=== PATIENT | male | born 1965 | race Caucasian/White ===

== ENCOUNTER → 2016-07-05 | Outpatient (CLI) | payer BC ==
[2016-07-05 13:24] LABS: BASO % 0.7 %; BASO ABS # 0.03 K/uL (0-0.2); COMPLETE YES; EOS % 1.7 %; HEMATOCRIT 39.9 % (42-52); LYMPH % 34.1 %; LYMPH ABS # 1.42 K/uL (1.2-3.4); MEAN CELL VOLUME 84.9 fL (80-100); MEAN CORPUSCULAR HEMOGLOBIN 30.6 pg (25-34); MEAN CORPUSCULAR HGB CONC 36.1 g/dl (32-36); MONO % 8.2 %; NEUT % 55.3 %; PLATELET COUNT 211 K/uL (130-400); WHITE BLOOD COUNT 4.17 K/uL (4.8-10.8)
== END | disposition home or self-care (01) ==
LOC: C.LABBC 08:34
PROVIDERS: ATTEND Internal Medicine
DX: D64.9 Anemia, unspecified (principal)

== ENCOUNTER 2017-07-10 14:18 | Emergency (ER) | payer BC, OTHER ==
[~2017-07-10] VITALS: Ht 185.4 cm; Wt 109.0 kg
[2017-07-10 14:26] VITALS: BP 154/99; PULSE 100; TEMP 36.7; O2SAT 97; Ht 185.4 cm; Wt 109.0 kg
--- NOTE | 2017-07-10 15:00 | EMERGENCY ROOM VISIT NOTE ---
History First contact with patient: 14:40 Chief Complaint: HIP PAIN Stated Complaint: SCIATICA, NUMBESS IN RIGHT FOOT, MUSCLE WEAKNESS History of Present Illness The patient is a 51 year old male who presents to the Emergency Room with complaints of low back pain into his right buttock and down his right leg that has been going on for approximately 1 week. The patient remembers feeling a twinge 1 week ago when he turned to for a couple coffee. He then got in a car and drove for 3 hours, which made the pain a lot worse. He has seen his primary care physician. He was put on prednisone and Flexeril that seems to be helping. The patient is concerned because now his right calf feels weak. He denies any numbness or tingling into the groin. No urinary or bowel incontinence. The patient is scheduled to see a neurologist on Thursday. Review of Systems 10 system review performed and negative unless noted in HPI or below Past Medical/Surgical History Otherwise healthy Social History Smoking Status: Never Smoker Occupation Status: employed Current/Historical Medications Scheduled Prednisone (Prednisone), 20 MG PO TAPER UD Scheduled PRN Cetirizine Hcl (Zyrtec Allergy), 10 MG PO DAILY PRN for Seasonal Allergies Cyclobenzaprine Hcl (Flexeril), 5 MG PO HS PRN for Muscle Spasms Ibuprofen Tab (Advil), 600 MG PO Q6H PRN for Pain Physical Exam Vital Signs Date Time Temp Pulse Resp B/P (MAP) Pulse Ox O2 Delivery O2 Flow Rate FiO2 07/10/17 14:26 36.7 100 16 154/99 97 Room Air Physical Exam VITALS: Vitals are noted on the nurse's note and reviewed by myself. Vital signs stable. GENERAL: 51-year-old male, in moderate discomfort, SKIN: The skin was without rashes, erythema, edema, or bruising. There is no tenting of the skin. Capillary reflex less than 2 seconds. HEAD: Normocephalic atraumatic. NECK: Supple without nuchal rigidity. MUSCULOSKELETAL: No tenderness to palpation of the lumbar spinous processes. Mild tenderness over the right SI joint. Right paraspinous muscles are tense. Dorsiflexion and plantar flexion is equal bilaterally. Sensation in the lower extremities is intact. Pain with flexion of the right hip. Strength 5/5 throughout. NEURO: Patient was alert and oriented to person place and time. Normal sensation to touch. No focal neurological deficits. Medical Decision & Procedures ER Provider Diagnostic Interpretation: MRI lumbar spine IMPRESSION: 1. A 16 x 7 x 7 mm right paracentral disc extrusion at L5-S1 which compresses the transiting right S1 nerve root. 2. Small right foraminal/extraforaminal focal disc protrusion at L2-L3 which compresses the exiting right L2 nerve root. 3. Additional degenerative changes as described above. Electronically signed by: Duke Saez M.D. 07/10/2017 4:58 PM Dictated Date/Time: 07/10/2017 4:52 PM The status of this report is Signed. Draft = Not yet reviewed or approved by Radiologist. Signed = Reviewed and approved by Radiologist. <AttendingPhy></AttendingPhy> <FamilyPhy>Davin Simons M.D.</FamilyPhy> < PrimaryPhy>Davin Simons M.D.</PrimaryPhy> <UnitNumber>[id number]</UnitNumber> <VisitNumber>[id number]</VisitNumber> <PatientName>DIGNA WYLIE</PatientName > <DateOfBirth>1965</DateOfBirth> <Location>[facility]</Location> <ServiceDate> 07/10/17</ServiceDate> <MNE>ESINDI</MNE> <OrderingPhy>Josephine Casper PA-C</ OrderingPhy> <OrderingPhyMNE>[facility] ED Course The patient was seen and examined He declined pain medication Imaging was performed Upon reevaluation, the patient was standing in the room. We discussed his results at length. He voiced understanding, was comfortable being discharged home. He again declined pain medication. Discharge instructions were reviewed, and he was discharged in good condition Medical Decision Differential diagnosis: Spine fracture, ligamentous injury, subluxation, spondylolisthesis, spondylosis, herniated disc, contusion, muscle spasm This patient is a 51-year-old male that presents emergency department with low back pain, numbness and weakness into the right leg. On exam, I cannot appreciate any weakness. He is neurovascular intact. An MRI was performed consistent with a disc protrusion at L5-S1. This likely explains his symptoms. The patient declined pain medication. He is already taking a muscle relaxant and steroids. He will follow-up with his neurologist as scheduled on Thursday. He agrees to return to the emergency department with worsening symptoms. This chart was completed in part utilizing [employer] Speech Voice Recognition software. Attempts were made to minimize the grammatical errors, random word insertions, pronoun errors and incomplete sentences. Any formal questions or concerns about the content, text or information contained within the body of this dictation should be directly addressed to the provider for clarification. Blood Pressure Screening Patient's blood pressure: Elevated blood pressure Blood pressure disposition: Elevated BP felt to be situational Impression Primary Impression: Sciatica of right side Departure Information Dispostion Home / Self-Care Condition GOOD Referrals Davin Simons M.D. (PCP) Patient Instructions [facility] Additional Instructions You had been evaluated in the emergency department for back pain. This is likely due to a disc protrusion at L5-S1 Please continue medications as prescribed in addition to prednisone and steroids, you may take Tylenol and ibuprofen as needed for pain Ibuprofen 600 mg and/or Tylenol 1000 mg every 8 hours. You may also alternate these medications for more effective pain relief: Ibuprofen --4 HRS--> Tylenol --4 HRS--> ibuprofen --4 HRS--> Tylenol .... Please follow-up with the neurologist as scheduled on Thursday. Do not hesitate to return to the emergency department with a new, worsening or concerning symptoms; especially, numbness or tingling in the groin, uncontrolled pain, or urinary or bowel incontinence It was a pleasure participating in your care Work Instructions Return To Work: 2 days
[2017-07-10] MEDS ORDERED: CYCL5TAB PO (15:20)
[2017-07-10] MEDS ORDERED: PRED20TA PO (15:20)
[2017-07-10] MEDS ORDERED: IBUP-103 PO (15:20)
[2017-07-10] MEDS ORDERED: CETI10CA PO (15:20)
--- NOTE | 2017-07-10 16:59 | DIAGNOSTIC IMAGING REPORT ---
LUMBAR SPINE MRI HISTORY: Right leg numbness and weakness TECHNIQUE: Multiplanar multisequence MRI of the lumbar spine was performed without the use of contrast. COMPARISON: None. FINDINGS: For the purpose of the report the L5-S1 disc space will be located on axial image 27 of 30. Mild dextroscoliosis. Alignment is intact. No fractures within the lumbar spine. The contrast terminates at the L1 level. Moderate facet osteoarthritis at L4-L5. Paraspinal soft tissues are unremarkable. Mild disc space narrowing at L5-S1. Disc desiccation throughout the majority of the lumbar spine. L1-L2: Minimal central canal narrowing primarily due to the ligamentum and facet hypertrophy. There is also mild bilateral neural foraminal narrowing. L2-L3: Small broad-based posterior disc bulge with a small right foraminal/extraforaminal focal disc protrusion. This abuts and compresses the exiting right L2 nerve root at this level. There is also mild central canal narrowing due to the ligamentum and facet hypertrophy. L3-L4: Small broad-based posterior disc bulge with a tiny focal central disc protrusion. There is ligamentum and facet hypertrophy resulting in mild central canal and [id number] bilateral neural foraminal narrowing. L4-L5: Tiny broad-based posterior disc bulge with a focal central annular tear. Mild central canal narrowing due to the ligamentum and facet hypertrophy. There is also moderate bilateral neural foraminal narrowing. L5-S1: There is a 16 x 7 x 7 mm right paracentral disc extrusion demonstrating inferior subligamentous migration. This abuts and compresses the transiting right S1 nerve root. No significant central canal narrowing. Mild right-sided neural foraminal narrowing. IMPRESSION: 1. A 16 x 7 x 7 mm right paracentral disc extrusion at L5-S1 which compresses the transiting right S1 nerve root. 2. Small right foraminal/extraforaminal focal disc protrusion at L2-L3 which compresses the exiting right L2 nerve root. 3. Additional degenerative changes as described above. Electronically signed by: Duke Saez M.D. 07/10/2017 4:58 PM Dictated Date/Time: 07/10/2017 4:52 PM
== END 2017-07-10 17:43 | disposition home or self-care (01) ==
LOC: C.EDB 14:20 → C.EDD 17:43
DX: M54.31 Sciatica, right side (principal)

== ENCOUNTER → 2017-07-23 | Day surgery (SDC) | payer OTHER ==
[2017-07-17 14:37] VITALS: Ht 185.4 cm; Wt 104.5 kg
[~2017-07-23] VITALS: Ht 185.4 cm; Wt 104.5 kg
[~2017-07-23] MED LIST: CETI10CA PO; DEXAMETHASONE SOD INJ 4 MG/ML VIAL ONE; FLUT50SP45 NAE; LIDOCAINE HCL 1% MPF 5 ML VIAL ONE; PRED20TA PO
--- NOTE | 2017-07-23 08:39 | History & Physical Bridge - SC ---
H&P Re-Evaluation Bridge Note: I have examined the patient, reviewed the History & Physical and in the interval since the performance of the History & Physical I have noted the following changes of clinical significance: No changes noted
[2017-07-23 09:00] VITALS: BP 144/89; PULSE 89; TEMP 36.4; O2SAT 98
--- NOTE | 2017-07-23 09:00 | Discharge Instructions-SurgCtr ---
Discharge Instructions Date of Service Jul 23, 2017. Visit Reason for Visit: Acute Back Pain With Sciatica, Low Back Pain Discharge Discharge Diagnosis / Problem: same Discharge Goals Goal(s): Improve function Activity Recommendations Activity Limitations: as noted below Lifting Limitations: gradually increase as tolerated Anesthesia . Post Anesthesia Instructions: If you have had General Anesthesia or IV Sedation: * Do not drive today. * Resume driving when surgeon permits. * Do not make important decisions or sign legal documents today. * Call surgeon for: 1. Temperature elevations greater than 101 degrees F. 2. Uncontrollable pain. 3. Excessive bleeding. 4. Persistent nausea and vomiting. 5. Medication intolerance (nausea, vomiting or rash). * For nausea and vomiting use only clear liquids such as: tea, soda, bouillon until nausea subsides, then gradually increase diet as tolerated. * If you have any concerns or questions, call your surgeon's office. If physician is unavailable and it is an emergency, call 911 or go to the nearest emergency room. . Instructions / Follow-Up Instructions / Follow-Up home, take take it easy. follow next week Diet Recommendations Home Diet: no limitations Procedures Procedures Performed: L5-S1 EPIDURAL STEROID INJECTION Pending Studies Studies pending at discharge: no Medical Emergencies . Who to Call and When: Medical Emergencies: If at any time you feel your situation is an emergency, please call 911 immediately. . Non-Emergent Contact Non-Emergency issues call your: Primary Care Provider . . "Provider Documentation" section prepared by Cristopher Trejo. .
--- NOTE | 2017-07-23 09:01 | [facility] Post Operative Brief Note ---
Immediate Operative Summary Operative Date Jul 23, 2017. Pre-Operative Diagnosis SCIATICA Post-Operative Diagnosis SCIATICA Procedure(s) Performed L5-S1 EPIDURAL STEROID INJECTION Surgeon DR. Luiz FIELD Director Of Collections And Archives Surgeon(s) none Estimated Blood Loss NONE. Findings Consistent with Post-Op Diagnosis Specimens 0 Drains None Anesthesia Type Local
--- NOTE | 2017-07-23 09:48 | OPERATIVE REPORT ---
DATE OF OPERATION: 07/23/2017 PREOPERATIVE DIAGNOSIS: Disk herniation, stenosis, L5-S1. POSTOPERATIVE DIAGNOSIS: Same. PROCEDURE: Include epidural steroid, L5-S1, lumbar. SURGEON: Dr. Trejo. COMPLICATIONS: Zero complications. DESCRIPTION OF PROCEDURE: The patient was taken to minor procedure room in the surgical center, placed prone, prepped and draped sterile. A spinal needle was advanced intralaminar at L5-S1. A 2 mL of dexamethasone injected to the epidural space. The patient tolerated the procedure well and discharged home. I attest to the content of the Intraoperative Record and any orders documented therein. Any exception s are noted below.
== END | disposition home or self-care (01) ==
LOC: X.SURG 07:09
PROVIDERS: ATTEND Orthopaedic Surgery Orthopaedic Surgery of the Spine
DX: M54.40 Lumbago with sciatica, unspecified side (principal); M48.061 Spinal stenosis, lumbar region without neurogenic claudication; M51.27 Other intervertebral disc displacement, lumbosacral region